=== PATIENT | female | born 1960 | race Caucasian/White ===

== ENCOUNTER 2019-10-29 15:41 | Outpatient (CLI) | payer OTHER, BC, SELFPAY ==
--- NOTE | ~2019-10-29 | MM_ITS ---
EXAMINATION: MM screening [facility] BI w heather HISTORY: Screening mammogram TECHNIQUE: Craniocaudal and mediolateral oblique 3-D tomosynthesis images were obtained and synthetic 2-D images were generated. CAD analysis was submitted and interpreted. COMPARISON: Comparison to multiple prior studies sequentially, with oldest reviewed study dated 03/01. BREAST PARENCHYMAL COMPOSITION: There are scattered areas of fibroglandular density. FINDINGS: There is no evidence of suspicious mass, calcification, or architectural distortion to sugg est malignancy in either breast. There has been no suspicious interval change. IMPRESSION: 1. No mammographic evidence of malignancy. 2. Recommend routine screening mammography in one year. BI-RADS Category 1: Negative Reviewed, dictated and finalized at location A.
== END 2019-10-29 15:42 | disposition home or self-care (01) ==
LOC: ANHIMG 15:44
PROVIDERS: PCP Family Medicine; Visit Provider Family Medicine
DX: Z12.31 Encounter for screening mammogram for malignant neoplasm of breast (principal)
CPT/HCPCS: 77063; 77067

== ENCOUNTER 2019-12-06 11:00 | Outpatient (RCR) | payer OTHER, BC, SELFPAY ==
--- NOTE | 2019-10-15 15:14 | PTOPEVAL ---
Thank you for referring Gloria Albarran to [facility]. Please review, sign, date and return this plan of care MARIEL. Pt referred to therapy due to martin knee pain with OA changes. She demonstrates decreased martin hip strength, decreased performance with functional mobility of squats, lunges, walking and negotiating steps. She would benefit from additional PT service to address impairments and establish a HEP. Cont PT 2x/month for 2 months. I agree with and certify that the following plan of care is medically necessary. Referring Physician Date Attending Provider: Carlyle Holder MD *PT Outpatient Evaluation Start: 10/15/19 14:03 Freq: Status: Active Protocol: Document 10/15/19 14:02 DIMPLE (Rec: 10/15/19 14:55 CAP [email or web address]) Therapy Assessment Status Assessment Status Assessment Status Evaluation Outpatient Past Medical History Past Medical History Source of Past Medical History Patient,Recalled from Previous Visit, Confirmed with Patient /Family Musculoskeletal History Hx Arthritis Yes: martin knees Evaluation Information Problem Diagnosis OA martin knees Onset ~2 yrs Subjective Information She has been having martin knee Query Text:As Reported By Patient/ pain for the past 2-3 yrs. She Family penny have tightness around the knee with shooting pain of the right lateral knee region. She will have left hip pain which she contributes to her knee pain. She reports increased pain with steps, distance walking, squating. She does feel like her left knee is stronger than her right. She also c/o right lateral ankle pain. She is now wearing a brace to support the ankle joint. 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 She received injections martin knee on 10/01/19 with improved symptoms. Does feel like the symptoms are slowling returning. Prior Level of Function Home Setting Home Type House,Multiple Levels Environmental Barriers Stairs, Greater than 4 Pain Assessment Timing of Pain Assessment Timing of Pain Assessm
--- NOTE | 2019-11-28 13:45 | PCPTNOTE ---
Patient did not show up for scheduled appointment this date. She has 1 more visit scheduled for her re-eval.
--- NOTE | 2019-12-06 11:48 | PTOPEVAL ---
Thank you for referring Gloria Albarran to [facility] [place]. Please review, sign, date and return this plan of care MARIEL. Pt has received 4 therapy visits to address martin knee pain. She is indep with her HEP to address LE strength to maintain LE function and strength until she is ready for knee surgery. DC skilled therapy at this time with goals partially achieved. I agree with and certify that the following plan of care is medically necessary. Referring Physician Date Attending Provider: Carlyle Holder MD Physical Therapy update/Discharge note *PT Outpatient Evaluation Start: 10/15/19 14:03 Freq: Status: Active Protocol: Document 12/06/19 10:47 CAP (Rec: 12/06/19 11:10 CAP [email or web address]) Therapy Assessment Status Assessment Status Assessment Status Re-evaluation Evaluation Information Problem Diagnosis OA martin knees Onset ~2 yrs Additional Evaluation Detail She has been having martin knee pain for the past 2-3 yrs. She penny have tightness around the knee with shooting pain of the right lateral knee region. She will have left hip pain which she contributes to her knee pain. She reports increased pain with steps, distance walking, squating. Subjective Information She wears the right knee brace Query Text:As Reported By Patient/ intermittently depending on Family pain and clicking noise. She had a f/u with the MD on for her knee injection. Recommend TKR when pt is ready due to bone on bone both knee joints with right knee worse. She does feel the exercise have helped tone the leg muscles and improved the knee pain slightly. She plans to find a level path to perform walking program. She cont to have knee pain with steps. 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 Pain Assessment Timing of Pain Assessment Timing of Pain Assessment Re-assessment Pain Scale Pain Scale Used Numeric (1 - 10) Self Report Pain Assessment Left Knee(s) Reported Pain Level 3 Lissa
== END 2019-12-16 14:26 | disposition home or self-care (01) ==
LOC: ANHPT 11:00
PROVIDERS: PCP Family Medicine; Visit Provider Orthopaedic Surgery
DX: M17.0 Bilateral primary osteoarthritis of knee (principal)
CPT/HCPCS: 97110; 97161; 97530

== ENCOUNTER 2020-11-04 11:31 | Emergency (ER) | payer OTHER, BC, SELFPAY ==
--- NOTE | ~2020-11-04 | XR_ITS ---
EXAMINATION: [id number] DATE: 11/04/2020 11:59 INDICATION: Right chest injury and pain. TECHNIQUE: A frontal view of the chest and 3 views of the right ribs were obtained. COMPARISON: None. FINDINGS: The chest demonstrates clear lungs without pneumonia, pleural effusion, or pneumothorax. Th e heart size is normal. IMPRESSION: 1. No rib fracture. Reviewed, dictated and finalized at location A. IMPRESSION: 1. No rib fracture.
[2020-11-04 11:40] VITALS: BP 140/81; PULSE 66; RESP 16; TEMP 36.1; O2SAT 99
--- NOTE | 2020-11-04 12:03 | ED.GENADULT ---
HPI - General Adult General Chief complaint: Extremity Injury, Upper Stated complaint: rib pain Time Seen by Provider: 11/04/20 12:05 Source: patient and RN notes reviewed Mode of arrival: ambulatory Limitations: no limitations History of Present Illness HPI narrative: 59-year-old female presents with concern for pain on the right anterior ribs. Reports 3 days ago she was cleaning the bathtub when she reached to clean higher and slipped landing on the rim of the tub with her chest. Reports feeling a pop under her right breast, having subsequent pain. Reports the pain has worsened over the last day. She denies any intervention. She denies difficulty breathing, shortness of breath, chest pain. Reports pain worsens with movement, deep breathing. MD complaint: Rib pain Related Data Home Medications Medication Instructions Recorded Confirmed metoprolol tartrate 50 mg PO DAILY 11/04/20 11/04/20 Allergies Allergy/AdvReac Type Severity Reaction Status Date / Time atorvastatin Allergy Unknown muscle Verified 11/04/20 11:35 cramps buspirone Allergy Unknown [place] Verified 11/04/20 11:35 horrible colesevelam Allergy Unknown too gassy Verified 11/04/20 11:35 fenofibric acid [Fibricor] Allergy Unknown did not Verified 11/04/20 11:35 tolerate rosuvastatin Allergy Unknown muscle Verified 11/04/20 11:35 cramps simvastatin Allergy Unknown muscle Verified 11/04/20 11:35 cramps Sulfa (Sulfonamide Allergy Unknown Skin Verified 11/04/20 11:35 Antibiotics) Reaction Review of Systems Review of Systems: Narrative: CONSTITUTIONAL: Denies malaise, chills, sweats, or fever. CARDIOVASCULAR: Denies chest pain, palpitations, or edema. RESPIRATORY: Denies cough or dyspnea. GASTROINTESTINAL: Denies abdominal pain, nausea, vomiting SKIN: Denies bruising, lacerations, abrasions MUSCULOSKELETAL: Reports right rib pain, anterior under the right breast NEUROLOGIC: Denies numbness, weakness All systems reviewed & are unremarkable except as noted in HPI and below PMFSH Past Medical History Medical History BMI 27.0-27.9,adult BMI 29.0-29.9,adult Degenerative arthritis of knee, bilateral Hypertension Surgical History Surgical History H/O lumpectomy History of endometrial ablation Family History Family History Mother Family history of Alzheimer's disease, Onset Age: 75 Father Family history of malignant neoplasm of brain, Onset Age: 38 Hypertension Social History Social History Smoking status: Never smoker Alcohol intake: never Additional living arrangements comments: Otis Albarran Gender identity (if verbalized by the patient): Female Comments At time of signature, agree with nursing past medical, surgical, social and family history. There is no relevant family history pertinent to the presenting complaint Exam Narrative: Exam Narrative: GENERAL: Well-appearing, well-nourished, and in no acute distress. HEAD: Normocephalic, atraumatic. EYES: PERRLA, conjunctivae clear ENT: Nares clear. Mucous membranes moist. NECK: Supple. No lymphadenopathy. CHEST: No respiratory distress. Clear to auscultation. No bony deformities, no asymmetry. Speaks in full sentences. HEART: Regular rate and rhythm. EXTREMITIES: Upper extremities have grossly normal range of motion. SKIN: Warm, dry, no rash. NEURO: Alert and oriented x3 PSYCH: Normal mood and affect Course Course Emergency Course: Patient is aware of diagnosis, understands and agrees to treatment plan. Anticipatory guidance given. Patient agrees to follow-up as directed and is aware of reasons to seek care at the emergency department. Portions of this record may have been created with voice recognition [employer]
== END 2020-11-04 12:22 | disposition home or self-care (01) ==
PROVIDERS: Emergency Provider Nurse Practitioner; PCP Family Medicine
DX: S20.211A Contusion of right front wall of thorax, initial encounter (principal); W01.198A Fall on same level from slipping, tripping and stumbling with subsequent striking against other object, initial encounter; I10 Essential (primary) hypertension
CPT/HCPCS: 71101; 99213; G0463

== ENCOUNTER 2021-03-18 15:14 | Outpatient (CLI) | payer OTHER, BC, SELFPAY ==
--- NOTE | ~2021-03-18 | MM_ITS ---
EXAMINATION: MM screening [facility] BI w heather HISTORY: Screening mammogram TECHNIQUE: Craniocaudal and mediolateral oblique 3-D tomosynthesis images were obtained and synthetic 2-D images were generated. CAD analysis was submitted and interpreted. COMPARISON: 10/02/2019, 10/25/2018 BREAST PARENCHYMAL COMPOSITION: There are scattered areas of fibroglandular density. FINDINGS: There is no evidence of suspicious mass, calcification, or architectural distortion to sugg est malignancy in either breast. There has been no suspicious interval change. IMPRESSION: 1. No mammographic evidence of malignancy. 2. Recommend routine screening mammography in one year. BI-RADS Category 1: Negative Reviewed, dictated and finalized at location A. IT CHARGE AUTHORIZER
== END 2021-03-18 15:15 | disposition home or self-care (01) ==
PROVIDERS: PCP Family Medicine; Visit Provider Family Medicine
DX: Z12.31 Encounter for screening mammogram for malignant neoplasm of breast (principal)
CPT/HCPCS: 77063; 77067

== ENCOUNTER 2022-05-18 12:33 | Outpatient (CLI) | payer OTHER, BC, SELFPAY ==
--- NOTE | ~2022-05-18 | MM_ITS ---
EXAMINATION: MM screening [facility] BI w heather HISTORY: Screening mammogram TECHNIQUE: Craniocaudal and mediolateral oblique 3-D tomosynthesis images were obtained and synthetic 2-D images were generated. CAD analysis was submitted and interpreted. COMPARISON: 03/18/2021, 10/29/2019, 09/24/2018 BREAST PARENCHYMAL COMPOSITION: There are scattered areas of fibroglandular density. FINDINGS: No suspicious mass, calcification, or architectural distortion are identified in either [place] ast to suggest malignancy. There has been no suspicious interval change. IMPRESSION: 1. No mammographic evidence of malignancy. 2. Recommend routine screening mammography in one year. BI-RADS Category 1: Negative Reviewed, dictated and finalized at location A. NOMETER ADJUSTER
== END 2022-05-18 12:34 | disposition home or self-care (01) ==
LOC: ANHIMG 12:35
PROVIDERS: PCP Emergency Medicine; Visit Provider Physician Assistant
DX: Z12.31 Encounter for screening mammogram for malignant neoplasm of breast (principal)
CPT/HCPCS: 77063; 77067

== ENCOUNTER 2023-09-06 09:18 | Outpatient (CLI) | payer OTHER, BC, SELFPAY ==
--- NOTE | ~2023-09-06 | MM_ITS ---
CORRECTED REPORT corrected examination description [facility] 09/07/2023 This report was recreated on 09/07/2023. Original report was EXAMINATION: MM screening [facility] BI w heather HISTORY: Screening mammogram TECHNIQUE: Craniocaudal and mediolateral oblique 3-D tomosynthesis images were obtained and synthetic 2-D images were generated. CAD analysis was submitted and interpreted. COMPARISON: 05/18/2022, 03/18/2021 bilateral screening mammogram examinations BREAST PARENCHYMAL COMPOSITION: There are scattered areas of fibroglandular density. FINDINGS: There is no evidence of suspicious mass, calcification, or architectural distortion to suggest malignancy in either breast. There has been no suspicious interval change. IMPRESSION: 1. No mammographic evidence of malignancy. 2. Recommend routine screening mammography in one year. BI-RADS Category 1: Negative Reviewed, dictated and finalized at location B. MTDD
== END 2023-09-06 09:19 | disposition home or self-care (01) ==
LOC: ANHIMG 09:20
PROVIDERS: PCP Family Medicine; Visit Provider Nurse Practitioner Family
DX: Z12.31 Encounter for screening mammogram for malignant neoplasm of breast (principal)
CPT/HCPCS: 77063; 77067

== ENCOUNTER 2024-08-20 02:59 | Day surgery (SDC) | payer MEDICARE, BC, SELFPAY ==
[2024-08-14 09:26] VITALS: BMI 22.8
--- OUTSIDE RECORDS SUMMARY | 2024-08-20 03:02 | XMS_ITS | Clinical Summary ---
Author Organization [facility] Care Team Providers Care Adjustment Supervisor Name Role Phone Unavailable Primary Care Provider Unavailabl e Social History Tobacco Use Types Packs/Day Years Used Date Smoking Tobacco: Never Assessed Comments Unknown Sex and Gender Information Value Date Recorded Sex Assigned at Not on file Legal Sex Female 12:11 PM [employer] OPER[employer] Gender Identity Not on file Sexual Orientation Not on file Plan of Treatment Health Maintenance Due Date Last Done Comments DEXA Bone Density 1960 Hepatitis C Virus (HCV) Screening 1960 TdaP Immunization 1958 Pap Smear 12/29/1979 Cervical Cancer Screening (CCS) 1988 HPV/Cotest 1988 Colonoscopy 12/29/2003 Colorectal Cancer Screening 12/29/2003 Cologuard 2008 Immunochemical Fecal Occult Blood 2008 Mammogram 2008 Zoster Immunization (1 of 2) 2008 Pneumococcal Immunization (5 0+ years) (2 of 2 - PPSV23) 03/06/2021 03/06/2020 Influenza Immunization (#1) 12/31/202309/2019, 02/19/2019, 12/11/2017 SARS-COV-2 Immunization (3 - season) 2023 08/18/2020, 07/27/2020 Respiratory Syncytial Virus (RSV) Immunization (Adult) (1 - 1-dose 75+ series) 2033 Pneumococcal Immunization Combined Discontinued 03/06/2020 Hepatitis B Immunization Aged Out No longer eligible based on patient's age to complete this topic Meningococcal Immunization (ACWY) Aged Out No longer eligible based on patient's age to complete this topic Rotavirus Immunization Aged Out No lo nger eligible based on patient's age to complete this topic
--- OUTSIDE RECORDS SUMMARY | 2024-08-20 03:02 | XMS_ITS | Referral Summary ---
Author Organization [facility] Address [address] [place] [id number] Care Team Providers Care Brim Blocker Name Role Phone Mike Brown MD Primary Care Provider [phone] Allergies Active Allergy Reactions Criticality Noted Date Comments Sulfa (Sulfonamide Antibiotics) Hives Medium 07/2017 Medications clonazePAM (KlonoPIN) 0.5 mg tablet 5 09/21/2017 Active triamterene-hydroC HLOROthiazide (triamterene-hydro CHLOROthiazide) 37.5-25 mg per tablet/capsule Activ e metoprolol XL (TOPROL-XL) 200 mg 24 hr tablet Active levothyroxine (SYNTHROID, LEVOTHROID) 175 mcg tablet Active ezetimibe (ZETIA) 10 mg tablet 10/27/2023 Active FLUoxetine (PROzac) 40 mg capsule Active pravastatin (PRAVACHOL) 40 mg tablet 10/27/2023 Active zolpidem (AMBIEN) 10 mg tablet 10/16/2023 Active Active Problems Problem Noted Date Diagnosed Date Abnormal mammogram 08/09/2017 Immunizations Immunization Administration Dates Next Due Pfizer SARS-CoV-2 Monovalent Vaccination (12+ Yrs) AUGUSTE-READY TO USE 11/18/2021 Pfizer Sars-Cov-2 Bivalent Vaccination (12+ YRS) 04/12/2022 Social History Tobacco Use Types Packs/Day Years Used Date Smoking Tobacco: Never Smokeless Tobacco: Never Tobacco Cessation:Counseling Given: No Alcohol Use Standard Drinks/Week Comments No 0 (1 standard drink = 0.6 oz pur e alcohol) Comments No Sex and Gender Information Value Date Recorded Sex Assigned at Not on file 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 Gender Identity Not on file Sexual Orientation Not on file Last Filed Vital Signs Vital Sign Reading Time Taken Comments Blood Pressure 120/82 11/17/2023 11:00 AM CDT Pulse 62 10/02/2017 1:31 PM CDT Temperature 36.1 C (97 F) 10/02/2017 1:12 PM CDT Respiratory Rate 16 10/02/2017 1:31 PM CDT Oxygen Saturation 100% 10/02/2017 1:31 PM CDT Inhaled Oxygen Concentration - - Weight 68.5 kg (151 lb) 11/17/2023 11:00 AM CDT Height 170.2 cm (5' 7 ) 10/13/2017 3:10 PM CDT Body Mass Index 23.65 10/13/2017 3:10 PM CDT Plan of Treatment Not on file Procedures Procedure Name Priority Date/Time Associated Diagnosis Comments SCREENING MAMMOGRAM Routine 09/07/2017 2 :29 PM CDT from Last 3 Months or Most Recently Relevant to Health Maintenance Results * Screening Mammogram (09/07/2017 2:29 PM CDT) Anatomical Region Laterality Modality Breast N/A Mammography 09/07/2017 2:29 PM CDT Narrative 09/07/2017 9:11 PM CDT ABIDA PIERRE M.D. FINAL REPORT ACC# Date Time Exam [id number] September 07, 2017 09:29:00 [facility] [id number] Procedure Mammo, unilat R Technologist(s): herbie Gray; ; [id number] September 07, 2017 09:29:00 [facility] [id number] Breast Bx Incl Loc Stereo R EXAMINATION: ORIGINAL REPORT RIGHT BREAST VACUUM-ASSISTED CORE BIOPSY UTILIZING TOMOSYNTHESIS AND STEREOTACTIC GUIDANCE, PLACEMENT OF A BIOPSY SITE TISSUE MARKER CLIP, AND RIGHT FULL FIELD DIGITAL POST-PROCEDURE MAMMOGRAM, INCLUDING DIGITAL BREAST TOMOSYNTHESIS HISTORY: Abnormal mammogram. 56-year-old woman with screening detected right breast architectural distortion in the upper outer quadrant. No ultrasound correlate is identified. Image guided core needle biopsy is requested to evaluate for malignancy. COMPARISON: 08/25/2017 PROCEDURE AND FINDINGS: The risks and potential benefits of the procedures were discussed with the patient and written informed consent was obtained. The patient was placed in the prone position on the biopsy unit with the RIGHT breast in craniocaudal compression and the area of interest was localized and targeted utilizing digital imaging with tomosynthesis and stereotaxis. After sterile preparation of the skin, 1% lidocaine was utilized for local anesthesia at the skin puncture site and 2% lidocaine with epinephrine was utilized for deeper local anesthesia/hemostasis about the biopsy site. A small skin incision was made with a #11 scalpel blade. A 9 gauge Suros vacuum-assisted biopsy needle was then advanced through the skin incision to the level of the architectural distortion of interest in the upper outer right breast from a superior approach utilizing stereotactic guidance and a total of 12 tissue cores were obtained. A specimen radiograph was not performed as the target lesion is non-calcified. [A TriMark Hourglass tissue marker clip was then placed at the biopsy site. The needle was removed and hemostasis was achieved. A sterile bandage and an ice pack were applied. The tissue cores were submitted to surgical pathology in formalin for histologic analysis. The patient tolerated the procedure well and without evidence of significant immediate complication. The patient was given verbal as well as written post procedural instructions prior to release from the department. A two-view RIGHT digital mammogram obtained post procedure demonstrates that the tissue marker clip is in the expected position on the craniocaudal view and approximately 1 cm inferior to the center of the distortion on the full lateral view compatible with inferior migration. The attending radiologist, Dr. Pierre, was present throughout the entire procedure. Dr. Betancourt (diagnostic resident care technician) also participated in this examination. IMPRESSION: Successful vacuum-assisted core needle biopsy of the RIGHT breast. Pathology is pending. Electronically signed by: Abida Pierre M.D. ADDENDUM #1 Addendum #1 by ADIEL James [facility] for Dr. Abida Pierre on 09/11/17 at 3:03pm: Histopathology from the core needle biopsy of the area of interest in the RIGHT breast demonstrates radial scar, with components of florid/usual ductal hyperplasia, cysts with apocrine metaplasia, stromal sclerosis, adenosis, and focal columnar cell change. There were no features diagnostic for atypical ductal hyperplasia, in situ carcinoma or invasive carcinoma. This is a high risk lesion and surgical consultation is recommended. The patient was notified of the biopsy results and recommendations by the referring physician Dr. Germain Serrano, who will direct further management. Edited by: Veronica Swatske Electronically signed by: Abida Pierre M.D. Requested By: Germain Serrano M.D. Dictated By: DENITA BETANCOURT M.D. on Sep 07 2017 2:56P This document has been electronically signed by: ABIDA PIERRE M.D. on Sep 07 2017 4:09P on Sep 12 2017 2:08P This Addendum has been electronically signed by: ABIDA PIERRE M.D. on Sep 12 2017 2:05P [id number] PIERRE M.D. FINAL REPORT Attending: GERMAIN SERRANO Requesting: Germain Serrano Requesting Fax: Attending Fax: Attending ID: [id number] Requesting ID: [id number] Report To 1 ID: [id number] Report To 1 Name: , Report To 1 FAX: NextGen Order #: Procedure Note Miscellaneous, Not In File - 09/12/2017 ABIDA PIERRE M.D. FINAL REPORT ACC# Date Time Exam [id number] September 07, 2017 09:29:00 [facility] [id number] Procedure Mammo, unilat R Technologist(s): herbie Gray; ; [id number] September 07, 2017 09:29:00 [facility] [id number] Breast Bx Incl Loc Stereo R EXAMINATION: ORIGINAL REPORT RIGHT BREAST VACUUM-ASSISTED CORE BIOPSY UTILIZING TOMOSYNTHESIS AND STEREOTACTIC GUIDANCE, PLACEMENT OF A BIOPSY SITE TISSUE MARKER CLIP, AND RIGHT FULL FIELD DIGITAL POST-PROCEDURE MAMMOGRAM, INCLUDING DIGITAL BREAST TOMOSYNTHESIS HISTORY: Abnormal mammogram. 56-year-old woman with screening detected right breast architectural distortion in the upper outer quadrant. No ultrasound correlate is identified. Image guided core needle biopsy is requested to evaluate for malignancy. COMPARISON: 08/25/2017 PROCEDURE AND FINDINGS: The risks and potential benefits of the procedures were discussed with the patient and written informed consent was obtained. The patient was placed in the prone position on the biopsy unit with the RIGHT breast in craniocaudal compression and the area of interest was localized and targeted utilizing digital imaging with tomosynthesis and stereotaxis. After sterile preparation of the skin, 1% lidocaine was utilized for local anesthesia at the skin puncture site and 2% lidocaine with epinephrine was utilized for deeper local anesthesia/hemostasis about the biopsy site. A small skin incision was made with a #11 scalpel blade. A 9 gauge Suros vacuum-assisted biopsy needle was then advanced through the skin incision to the level of the architectural distortion of interest in the upper outer right breast from a superior approach utilizing stereotactic guidance and a total of 12 tissue cores were obtained. A specimen radiograph was not performed as the target lesion is non-calcified. [A TriMark Hourglass tissue marker clip was then placed at the biopsy site. The needle was removed and hemostasis was achieved. A sterile bandage and an ice pack were applied. The tissue cores were submitted to surgical pathology in formalin for histologic analysis. The patient tolerated the procedure well and without evidence of significant immediate complication. The patient was given verbal as well as written post procedural instructions prior to release from the department. A two-view RIGHT digital mammogram obtained post procedure demonstrates that the tissue marker clip is in the expected position on the craniocaudal view and approximately 1 cm inferior to the center of the distortion on the full lateral view compatible with inferior migration. The attending radiologist, Dr. Pierre, was present throughout the entire procedure. Dr. Betancourt (diagnostic resident care technician) also participated in this examination. IMPRESSION: Successful vacuum-assisted core needle biopsy of the RIGHT breast. Pathology is pending. Electronically signed by: Abida Pierre M.D. ADDENDUM #1 Addendum #1 by Andreea Barfield, [facility] for Dr. Abida Pierre on 09/11/17 at 3:03pm: Histopathology from the core needle biopsy of the area of interest in the RIGHT breast demonstrates radial scar, with components of florid/usual ductal hyperplasia, cysts with apocrine metaplasia, stromal sclerosis, adenosis, and focal columnar cell change. There were no features diagnostic for atypical ductal hyperplasia, in situ carcinoma or invasive carcinoma. This is a high risk lesion and surgical consultation is recommended. The patient was notified of the biopsy results and recommendations by the referring physician Dr. Germain Serrano, who will direct further management. Edited by: Andreea Barfield Electronically signed by: Abida Pierre M.D. Requested By: Germain Serrano M.D. Dictated By: DENITA BETANCOURT M.D. on Sep 07 2017 2:56P This document has been electronically signed by: ABIDA PIERRE M.D. on Sep 07 2017 4:09P on Sep 12 2017 2:08P This Addendum has been electronically signed by: ABIDA PIERRE M.D. on Sep 12 2017 2:05P [id number] PIERRE M.D. FINAL REPORT Attending: GERMAIN SERRANO Requesting: Germain Serrano Requesting Fax: Attending Fax: Attending ID: [id number] Requesting ID: [id number] Report To 1 ID: [id number] Report To 1 Name: , Report To 1 FAX: NextGen Order #: Germain Serrano MD IMG MAMMO PROCEDURES Ed ited Result - Final from Last 3 Months or Most Recently Relevant to Health Maintenance Insurance [facility] [employer] [facility] [id number] [facility] [id number] [facility] [employer] Care Teams Brim Blocker Relationship Specialty Start Date End Date Mike Brown MD [address] [place] [address] PCP - General 08/09/17
--- OUTSIDE RECORDS SUMMARY | 2024-08-20 03:02 | XMS_ITS | Clinical Summary ---
Author Organization [facility] Address [address] [place] [id number] Care Team Providers Care Paste Maker Name Role Phone Mike Brown MD Primary Care Provider [phone] Allergies Active Allergy Reactions Criticality Noted Date [...] Pfizer Sars-Cov-2 Bivalent Vaccination (12+ YRS) 04/12/2022 Surgical History Surgery Date Site/Laterality Comments ENDOMETRIAL ABLATION W/ NOVASURE 05/01/2007 - 04/30/2008 BREAST BIOPSY 05/01/2017 - 04/30/2018 Excisional biopsy-[place] SECTION 05/01/1987 - 04/30/1988 TUBAL LIGATION 05/01/1993 - 04/30/1994 Medical History Medical History Date Comments Hypertension Hypothyroidism Dysmenorrhea Anxiety MVP (mitral valve prolapse) Family History Medical History Relation Name Comments Hypertension Father Relation Name Status Comments Father Social History Tobacco Use Types Packs/Day Years Used Date Smoking Tobacco: Never Smokeless Tobacco: Never Tobacco Cessation:Counseling Given: No Alcohol Use Standard Drinks/Week Comments No 0 (1 standard drink = 0.6 oz pur e alcohol) Comments No Sex and Gender Information Value Date Recorded Sex Assigned at Not on file 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 # 2: 06/02/93 FT, , girl, Jacquelyn , 6# 8, PPTL, JDS. Last Filed Vital Signs Vital Sign Reading [...] 10/13/2017 3:10 PM CDT Plan of Treatment Health Maintenance Due Date Last Done Comments Cervical Cancer Screening 1960 Colon Cancer Screening-Colonoscopy 1960 Depression Screening 1958 Fall Risk Assessment 1960 Hepatitis C Screening 1960 Osteoporosis Screening-Bone Density Scan 1958 Hepatitis B Screening 1976 Breast Cancer Screening-Mammogram 09/07/2018 018, 08/25/2017 Pneumococcal vaccine 65+ (2 of 2 - PPSV23) 03/06/2021 03/06/2020 Zoster Vaccine (2 of 2) 08/24/2021 06/29/2021 Covid-19 Vaccine (6 - 2023-2 5 season) 2023 04/12/2022, 11/18/2021, 04/11/2021, Additional history exists Well Visit 65+ 11/16/2024 11/17/2023 Influenza Vaccine (Season Ended) 2024 03/06/2020, 02/19/2019, 12/11/2017 DTaP/Tdap/Td Vaccine (2 - Td or Tdap) 08/04/2031 08/03/2021 Procedures Procedure Name Priority Date/Time Associated Diagnosis Comments SCREENING MAMMOGRAM Routine 09/07/2017 2 :29 PM CDT from Last 3 Months or Most Recently Relevant to Health Maintenance Results * Screening Mammogram (09/07/2017 2:29 PM CDT) Anatomical Region Laterality Modality Breast N/A Mammography 09/07/2017 2:29 PM CDT Narrative 09/07/2017 9:11 PM CDT ABIDA PIERRE M.D. FINAL REPORT ACC# Date Time Exam [id number] September 07, 2017 09:29:00 [facility] [id number] Procedure Mammo, unilat R Technologist(s): herbie Gray; ; [id number] September 07, 2017 09:29:00 [facility] [address] Breast Bx Incl Loc Stereo R EXAMINATION: [...] throughout the entire procedure. Dr. Betancourt (diagnostic energy operations vice president) also participated in this examination. IMPRESSION: Successful vacuum-assisted core needle biopsy of the RIGHT breast. Pathology is pending. Electronically signed by: Abida Pierre M.D. ADDENDUM #1 Addendum #1 by Andreea Barfield, [facility] for Dr. Abida Pierre on 09/11/17 at [...] PIERRE M.D. on Sep 12 2017 2:05P [id number] PIERRE M.D. FINAL REPORT Attending: GERMAIN SERRANO Requesting: Germain Serrano Requesting Fax: Attending Fax: Attending ID: [id number] Requesting ID: [id number] Report To 1 ID: [id number] Report To 1 Name: , Report To 1 FAX: NextGen Order #: Procedure Note Miscellaneous, Not In File - 09/12/2017 ABIDA PIERRE M.D. FINAL REPORT ACC# Date Time Exam [id number] September 07, 2017 09:29:00 [facility] [id number] Procedure Mammo, unilat R Technologist(s): herbie Gray; ; [id number] September 07, 2017 09:29:00 [facility] [address] Breast Bx Incl Loc Stereo R EXAMINATION: [...] a #11 scalpel blade. A 9 gauge [employer] vacuum-assisted biopsy needle was then advanced through [...] throughout the entire procedure. Dr. Betancourt (diagnostic energy operations vice president) also participated in this examination. IMPRESSION: Successful vacuum-assisted core needle biopsy of the RIGHT breast. Pathology is pending. Electronically signed by: Abida Pierre M.D. ADDENDUM #1 Addendum #1 by Andreea Barfield, [facility]- for Dr. Abida Pierre on 09/11/17 at [...] PIERRE M.D. on Sep 12 2017 2:05P [id number] PIERRE M.D. FINAL REPORT Attending: GERMAIN SERRANO Requesting: Germain Serrano Requesting Fax: Attending Fax: Attending ID: [id number] Requesting ID: [id number] Report To 1 ID: [id number] Report To 1 Name: , Report To 1 FAX: NextGen Order #: Germain Serrano MD IMG MAMMO PROCEDURES Ed ited Result - Final from Last 3 Months or Most Recently Relevant to Health Maintenance Insurance [facility] ACCESS [employer] [facility] [id number] [facility] [id number] [facility] [employer] Member Subscriber Plan / Payer (Ef fective 1988-Present) Name:Gloria Albarran Relation to Subscriber:Spouse Name:OTIS ALBARRAN Date of :1957 (Home) Address: [address] [place] [address] [place] [address] Payer ID:[id number] (NAIC) Group ID:[id number] Type:[facility] Address: [address] [place] [id number] Care Teams Paste Maker Relationship Specialty Start Date End Date Mike Brown MD [address] [place] [address] PCP - General 08/09/17
--- OUTSIDE RECORDS SUMMARY | 2024-08-20 03:02 | XMS_ITS ---
Author Organization Unknown Medications Medication Instructions Effective Dates (start - stop) Status zolpidem tartrate 10 MG Oral Tablet 00:00:00Z - Completed acetaminophen 300 MG / codei ne phosphate 30 MG Oral Tablet - Completed acetaminophen 300 MG / codei ne phosphate 30 MG Oral Tablet - Completed zolpidem tartrate 10 MG Oral Tablet :00:00Z - Completed acetaminophen 300 MG / codei ne phosphate 30 MG Oral Tablet - Completed hydrochlorothiazide 25 MG / triamterene 37.5 MG Oral Tablet - Compl eted pravastatin sodium 40 MG Oral Tablet 202300:00:00Z - Completed acetaminophen 300 MG / codei ne phosphate 30 MG Oral Tablet - Completed clonazepam 1 MG Oral Tablet [id number] :00:00Z - Completed ezetimibe 10 MG Oral Tablet [id number] :00:00Z - Completed acetaminophen 300 MG / codei ne phosphate 30 MG Oral Tablet - Completed ezetimibe 10 MG Oral Tablet [id number] :00:00Z - Completed ezetimibe 10 MG Oral Tablet [id number] :00:00Z - Completed zolpidem tartrate 10 MG Oral Tablet 00:00:00Z - Completed fluoxetine 20 MG Oral Capsule 2023-08-02 00:00:00Z - Completed acetaminophen 300 MG / codei ne phosphate 30 MG Oral Tablet - Completed acetaminophen 300 MG / codei ne phosphate 30 MG Oral Tablet - Completed - - Compl eted acetaminophen 300 MG / codei ne phosphate 30 MG Oral Tablet - Completed ezetimibe 10 MG Oral Tablet [id number] :00:00Z - Completed zolpidem tartrate 10 MG Oral Tablet :00:00Z - Completed pravastatin sodium 40 MG Oral Tablet 202200:00:00Z - Completed acetaminophen 300 MG / codei ne phosphate 30 MG Oral Tablet - Completed pravastatin sodium 40 MG Oral Tablet 2022:00:00Z - Completed - - Compl eted clonazepam 1 MG Oral Tablet [id number] :00:00Z - Completed hydrochlorothiazide 25 MG / triamterene 37.5 MG Oral Tablet - Compl eted clonazepam 1 MG Oral Tablet [id number] :00:00Z - Completed clonazepam 1 MG Oral Tablet [id number] :00:00Z - Completed zolpidem tartrate 10 MG Oral Tablet :00:00Z - Completed fluoxetine 20 MG Oral Capsule 2023-01-14 00:00:00Z - Completed levothyroxine sodium 0.05 MG Oral Tablet - Completed clonazepam 1 MG Oral Tablet [id number] :00:00Z - Completed zolpidem tartrate 10 MG Oral Tablet :00:00Z - Completed zolpidem tartrate 10 MG Oral Tablet :00:00Z - Completed metoprolol tartrate 50 MG Or al Tablet - Completed clonazepam 0.5 MG Oral Tablet 2023-01-05 00:00:00Z - Completed zolpidem tartrate 10 MG Oral Tablet 00:00:00Z - Completed - - Compl eted acetaminophen 300 MG / codei ne phosphate 30 MG Oral Tablet - Completed hydrochlorothiazide 25 MG / triamterene 37.5 MG Oral Tablet - Compl eted levothyroxine sodium 0.05 MG Oral Tablet - Completed acetaminophen 300 MG / codei ne phosphate 30 MG Oral Tablet - Completed zolpidem tartrate 10 MG Oral Tablet :00:00Z - Completed acetaminophen 300 MG / codei ne phosphate 30 MG Oral Tablet - Completed clonazepam 1 MG Oral Tablet [id number] :00:00Z - Completed metoprolol tartrate 50 MG Or al Tablet - Completed metoprolol tartrate 50 MG Or al Tablet - Completed clonazepam 1 MG Oral Tablet [id number] :00:00Z - Completed doxycycline hyclate 100 MG O ral Tablet - Completed fluoxetine 20 MG Oral Capsule 2023-04-25 00:00:00Z - Completed fluoxetine 20 MG Oral Capsule 2023-10-27 00:00:00Z - Completed zolpidem tartrate 10 MG Oral Tablet :00:00Z - Completed {6 (azithromycin 250 MG Oral Tablet) } Pack - Completed acetaminophen 300 MG / codei ne phosphate 30 MG Oral Tablet - Completed hydrochlorothiazide 25 MG / triamterene 37.5 MG Oral Tablet - Compl eted clonazepam 1 MG Oral Tablet [id number] :00:00Z - Completed zolpidem tartrate 10 MG Oral Tablet 00:00:00Z - Completed Patient Care team information Name Category Status Period Participants - - Proposed period not known -
[2024-08-20 11:50] VITALS: BP 164/70; PULSE 57; RESP 16; TEMP 36.5; O2SAT 98; BMI 22.7
--- NOTE | 2024-08-20 11:53 | WPDANESEPPF ---
Anes - Initial Pre Proc Eval Procedure: Operation Date: 08/20/24 13:00 Proposed Procedures p Colonoscopy - Andriy Quinteros MD Date/Time: 08/20/24 11:53 Surgeon: Andriy Quinteros MD Pre Op Diagnosis: Personal history of colon polyps, unspecified Patient Data Age: 63 Gender: F Height: 1.73 m Weight: 67.9 kg Last Vital Signs Temp 36.5 C 08/20/24 11:50 Pulse 57 L 08/20/24 11:50 Resp 16 08/20/24 11:50 BP 164/70 H 08/20/24 11:50 Pulse Ox 98 08/20/24 11:50 O2 Del Method Room Air 08/20/24 11:50 Allergies Allergy/AdvReac Type Severity Reaction Status Date / Time atorvastatin Allergy Unknown muscle Verified 08/20/24 11:48 cramps buspirone Allergy Unknown [place] Verified 08/20/24 11:48 horrible colesevelam Allergy Unknown too gassy Verified 08/20/24 11:48 fenofibric acid (Fibricor) Allergy Unknown did not Verified 08/20/24 11:48 tolerate rosuvastatin Allergy Unknown muscle Verified 08/20/24 11:48 cramps simvastatin Allergy Unknown muscle Verified 08/20/24 11:48 cramps Sulfa (Sulfonamide Allergy Unknown Skin Verified 08/20/24 11:48 Antibiotics) Reaction Home Medications ?Medication ?Instructions ?Recorded ?Confirmed ?Type ezetimibe 10 mg tablet See Rx Instructions .Route 10/27/22 03/05/24 Rx .COMPLEX #90 tabs pravastatin 40 mg tablet 40 mg PO DAILY #90 tabs 10/27/22 03/05/24 Rx fluoxetine 20 mg capsule See Rx Instructions .Route 08/02/23 08/20/24 Rx .COMPLEX #90 caps multivitamin 1 tablet PO DAILY 03/05/24 08/20/24 History levothyroxine 50 mcg tablet 50 mcg PO DAILY #90 tabs 03/08/24 08/20/24 Rx acetaminophen 300 mg-codeine 30 mg 1 tablet PO Q8H PRN pain #90 tabs 06/28/24 08/14/24 Rx tablet metoprolol tartrate 50 mg tablet See Rx Instructions .Route 03/28/25 04/22/25 Rx .COMPLEX #90 tabs clonazepam 1 mg tablet 1 mg PO BID #60 tabs 07/29/24 08/20/24 Rx zolpidem 10 mg tablet 10 mg PO QHS #60 tabs 07/29/24 08/20/24 Rx triamterene 37.5 See Rx Instructions .Route 07/30/24 08/20/24 Rx mg-hydrochlorothiazide 25 mg tablet .COMPLEX #90 tabs Patient hx anesthesia problems: none Family hx anesthesia problems: none Results Review: All pre-operative results and documents have been reviewed as part of the pre-operative evaluation. [facility] Past Medical History Medical History BMI 29.0-29.9,adult Degenerative arthritis of knee, bilateral Hypertension BMI 27.0-27.9,adult Surgical History Surgical History History of endometrial ablation H/O lumpectomy Family History Family History Mother Family history of Alzheimer's disease, Onset Age: 75 Father Hypertension Brain aneurysm Social History Social History Smoking status: Never smoker Alcohol intake: never Substance use: never Substance use type: does not use Lack of Transportation: No Lack of Food: Never True Current Housing: I Have Housing Concerned About Future Housing: No Difficulty Paying Gas/Electric Bills: No Difficulty Paying for Meds: No Currently Unemployed: No Education: High School Diploma/GED Difficulty w/ Childcare or Family Care: No Living arrangements: with family Additional living arrangements comments: [employer] Albarran Occupation/Education: retired Gender identity (if verbalized by the patient): Female Spiritual care concerns: No Anes - Eval Final PreProcedure Day of Procedure 08/20/24 11:53 Patient weight: normal Heart: regular rate and rhythm Lungs: clear to auscultation Airway: Mallampati scale class II Neurological: alert and oriented Last oral intake: >/= 8 hours ASA classification: III Emergent: no Anesthetic plan: proceed Anesthesia type and monitoring: general GIVS and standard monitoring Results Review: All pre-operative results and documents have been reviewed as part of the pre-operative evaluation. Informed Consent: The patient's anesthetic plan and its attendant risks and benefits were discussed with the patient/family/POA. Questions were solicited and answers provided to the satisfaction of the patient/family/POA.
[2024-08-20] MEDS: LACTATED RINGERS 1,000 ML 150 ML IV CONT (11:56)
--- NOTE | 2024-08-20 12:01 | P.HP_ITS ---
History of Present Illness History of Present Illness Consent: Risks, benefits, and alternatives have been discussed and questions answered. Patient agrees to proceed with procedure. Chief complaint: Personal history of colon polyps, unspecified Narrative: Gloria Albarran is a 63 year old female with colon polyp in 2019 Review of Systems Review of Systems: All systems reviewed & are unremarkable except as noted in HPI and below PMFSH Past Medical History Medical History (Updated 08/20/24 @ 12:02 by Andriy Quinteros MD) Colon polyp BMI 29.0-29.9,adult Degenerative arthritis of knee, bilateral Hypertension BMI 27.0-27.9,adult Surgical History Surgical History History of endometrial ablation H/O lumpectomy Family History Family History Mother Family history of Alzheimer's disease, Onset Age: 75 Father Hypertension Brain aneurysm Social History Social History Smoking status: Never smoker Alcohol intake: never Substance use: never Substance use type: does not use Lack of Transportation: No Lack of Food: Never True Current Housing: I Have Housing Concerned About Future Housing: No Difficulty Paying Gas/Electric Bills: No Difficulty Paying for Meds: No Currently Unemployed: No Education: High School Diploma/GED Difficulty w/ Childcare or Family Care: No Living arrangements: with family Additional living arrangements comments: [employer] Occupation/Education: retired Gender identity (if verbalized by the patient): Female Spiritual care concerns: No Meds Home Medications and Allergies Home Medications ?Medication ?Instructions ?Recorded ?Confirmed ?Type ezetimibe 10 mg tablet See Rx Instructions .Route 10/27/22 03/05/24 Rx .COMPLEX #90 tabs pravastatin 40 mg tablet 40 mg PO DAILY #90 tabs 10/27/22 03/05/24 Rx fluoxetine 20 mg capsule See Rx Instructions .Route 08/02/23 08/20/24 Rx .COMPLEX #90 caps multivitamin 1 tablet PO DAILY 03/05/24 08/20/24 History levothyroxine 50 mcg tablet 50 mcg PO DAILY #90 tabs 03/08/24 08/20/24 Rx acetaminophen 300 mg-codeine 30 mg 1 tablet PO Q8H PRN pain #90 tabs 06/28/24 08/14/24 Rx tablet metoprolol tartrate 50 mg tablet See Rx Instructions .Route 07/26/24 08/20/24 Rx .COMPLEX #90 tabs clonazepam 1 mg tablet 1 mg PO BID #60 tabs 07/29/24 08/20/24 Rx zolpidem 10 mg tablet 10 mg PO QHS #60 tabs 07/29/24 08/20/24 Rx triamterene 37.5 See Rx Instructions .Route 07/30/24 08/20/24 Rx mg-hydrochlorothiazide 25 mg tablet .COMPLEX #90 tabs Allergies Allergy/AdvReac Type Severity Reaction Status Date / Time atorvastatin Allergy Unknown muscle Verified 08/20/24 11:48 cramps buspirone Allergy Unknown [place] Verified 08/20/24 11:48 horrible colesevelam Allergy Unknown too gassy Verified 08/20/24 11:48 fenofibric acid (Fibricor) Allergy Unknown did not Verified 08/20/24 11:48 tolerate rosuvastatin Allergy Unknown muscle Verified 08/20/24 11:48 cramps simvastatin Allergy Unknown muscle Verified 08/20/24 11:48 cramps Sulfa (Sulfonamide Allergy Unknown Skin Verified 08/20/24 11:48 Antibiotics) Reaction Vital Signs Vital Signs - 24 hr 08/20/24 11:50 Temperature 97.7 F Pulse Rate 57 L Respiratory Rate 16 Blood Pressure 164/70 H Pulse Oximetry 98 Oxygen Delivery Room Air Exam Const: General: comfortable and no acute distress HENMT: Face/Nose/Sinus: Normal nares present Eyes: General: appearance normal, both eyes and all related structures Neck: Neck: no JVD Resp: Auscultation: clear to auscultation bilaterally Cardio: Rate: regular rate Rhythm: regular rhythm GI: Inspection: non-distended GI Palp: Yes Soft to palpation Skin: General skin exam: normal color Neuro: Speech: normal speech Extrem: General: normal to inspection Psych: Mental Status: mental status grossly normal Assessment and Plan Assessment and plan (1) Colon polyp: Code(s): K63.5 - Polyp of colon Status: Acute Assessment and Plan: colonoscopy
[2024-08-20 12:33] VITALS: BP 102/59; PULSE 53; RESP 16; O2SAT 100
[2024-08-20 12:43] VITALS: BP 108/54; PULSE 57; RESP 16; O2SAT 100
[2024-08-20 12:53] VITALS: BP 125/72; PULSE 53; RESP 16; O2SAT 98
== END 2024-08-20 13:07 | disposition home or self-care (01) ==
PROVIDERS: PCP Family Medicine; Referring Provider Nurse Practitioner Family; Visit Provider Internal Medicine Gastroenterology
PROC: 0DJD8ZZ Inspection of Lower Intestinal Tract, Via Natural or Artificial Opening Endoscopic (ICD-10-PCS; CPT 45378; principal; 2024-08-20 13:00)
DX: Z12.11 Encounter for screening for malignant neoplasm of colon (principal); D12.2 Benign neoplasm of ascending colon; D12.8 Benign neoplasm of rectum; K63.5 Polyp of colon; K64.8 Other hemorrhoids; K57.30 Diverticulosis of large intestine without perforation or abscess without bleeding; I10 Essential (primary) hypertension; M17.0 Bilateral primary osteoarthritis of knee; Z98.890 Other specified postprocedural states; Z98.891 History of uterine scar from previous surgery
CPT/HCPCS: 45385; 88305; J2003; J2704; J7120